=== PATIENT | male | born 1955 | race Caucasian/White ===

== ENCOUNTER 2017-04-25 21:38 | Emergency (ER) | payer MEDICAID ==
--- NOTE | 2017-04-25 22:40 | Emergency Department Record ---
History of Present Illness - General Chief complaint: Abscess Stated complaint: LARGE SORE OVER LEFT EYE Time Seen by Provider: 04/25/17 22:23 Source: Patient Mode of Arrival: Ambulatory Limitations: No limitations - History of Present Illness Initial comments: pt has a growth on his eyelid for a year which has gotten progressively bigger. it is tender. pt has not been to dr in a long time but has an appt with dr alegria this week complaint: Lesion Onset/Timin -: Days(s) Location: Face Severity: Mild Consistency: Constant Associated symptoms: Denies other symptoms Treatments Prior to Arrival: Attempted to drain pus at home - Related Data Previous Rx's Medication Instructions Recorded Sulfamethoxazole/Trimethoprim 1 each PO BID #14 tablet 04/25/17 [Bactrim Ds Tablet] Allergies Allergy/AdvReac Type Severity Reaction Status Date / Time No Known Drug Allergies Allergy Verified 03/24/16 15:57 Travel Screening - Travel/Exposure Within Last 30 Days Have you traveled within the last 30 days?: No Review of Systems Reviewed: No additional complaints except as noted below Constitutional: Reports: As per HPI. Denies: Chills, Fever, Malaise, Night sweats, Weakness, Weight change Eyes: Reports: As per HPI. Denies: Eye discharge, Eye pain, Photophobia, Vision change ENT: Reports: As per HPI. Denies: Congestion, Dental pain, Ear pain, Epistaxis , Hearing loss, Throat pain Respiratory: Reports: As per HPI. Denies: Cough, Dyspnea, Hemoptysis, Stridor, Wheezes Cardiovascular: Reports: As per HPI. Denies: Arrhythmia, Chest pain, Dyspnea on exertion, Edema, Murmurs, Orthopnea, Palpitations, Paroxysmal nocturnal dyspnea, Rheumatic Fever, Syncope Endocrine: Reports: As per HPI. Denies: Fatigue, Heat or cold intolerance, Polydipsia, Polyuria Gastrointestinal: Reports: As per HPI. Denies: Abdominal pain, Constipation, Diarrhea, Hematemesis, Hematochezia, Melena, Nausea, Vomiting Genitourinary: Reports: As per HPI. Denies: Dysuria, Frequency, Hematuria, Incontinence, Retention, Testicular pain, Testicular mass, Urgency Musculoskeletal: Reports: As per HPI. Denies: Arthralgia, Back pain, Gout, Joint swelling, Myalgia, Neck pain Skin: Reports: As per HPI. Denies: Bruising, Change in color, Change in hair/ nails, Lesions, Pruritus, Rash Neurological: Reports: As per HPI. Denies: Abnormal gait, Confusion, Headache, Numbness, Paresthesias, Seizure, Tingling, Tremors, Vertigo, Weakness Psychiatric: Reports: As per HPI. Denies: Anxiety, Auditory hallucinations, Depression, Homicidal thoughts, Suicidal thoughts, Visual hallucinations Hematological/Lymphatic: Reports: As per HPI. Denies: Anemia, Blood Clots, Easy bleeding, Easy bruising, Swollen glands Past Medical History - SOCIAL HISTORY Smoking Status: Current every day smoker Alcohol Use: Heavy Alcohol Use Comment: 6 drinks Drug Use: None - RESPIRATORY Hx Respiratory Disorders: Yes Hx COPD: Yes Comment:: emphysema - CARDIOVASCULAR Hx Cardio Disorders: Yes Hx Abnormal EKG: Yes Hx Heart Attack: Yes - NEURO Hx Neuro Disorders: No - GI Hx GI Disorders: No - Hx Genitourinary Disorders: No - ENDOCRINE Hx Endocrine Disorders: No - MUSCULOSKELETAL Hx Musculoskeletal Disorders: No - PSYCH Hx Psych Problems: No - HEMATOLOGY/ONCOLOGY Hx Hematology/Oncology Disorders: No Family Medical History Any Significant Family History?: Yes Hx Cancer: Father, Mother Hx Heart Disease: Mother Physical Exam - General General Appearance: Alert, Oriented x3, Cooperative, Mild distress - Head Head exam: Normal inspection Image of Face/Head: 1 - walnut sized lesion that is tender w black center - Eye Eye exam: Normal appearance, PERRL, EOMI, Periorbital swelling Pupils: Normal accommodation - ENT ENT exam: Normal exam, Mucous membranes moist, Normal external ear exam, Normal orophraynx, TM's normal bilaterally Ear exam: Normal external inspection. negative: External canal tenderness Nasal Exam: Normal inspection. negative: Discharge, Sinus tenderness Mouth exam: Normal external inspection, Tongue normal Teeth exam: Normal inspection. negative: Dental caries Throat exam: Normal inspection. negative: Tonsillar erythema, Tonsillar exudate - Neck Neck exam: Normal inspection, Full ROM. negative: Tenderness - Respiratory Respiratory exam: Normal lung sounds bilaterally. negative: Respiratory distress - Cardiovascular Cardiovascular Exam: Regular rate, Normal rhythm, Normal heart sounds - GI/Abdominal GI/Abdominal exam: Soft, Normal bowel sounds. negative: Tenderness - Rectal Rectal exam: Deferred - exam: Deferred - Extremities Extremities exam: Normal inspection, Full ROM, Normal capillary refill. negative: Tenderness - Back Back exam: Reports: Normal inspection, Full ROM. Denies: Muscle spasm, Rash noted, Tenderness - Neurological Neurological exam: Alert, CN II-XII intact, Normal gait, Oriented X3 - Psychiatric Psychiatric exam: Normal affect, Normal mood - Skin Skin exam: Dry, Intact, Normal color, Warm Distribution of rash: Face Description of rash: Swelling, Tenderness Course Vital Signs 04/25/17 21:53 Temperature 98.1 F Pulse Rate [ 86 Pulse Ox Probe] Respiratory 20 Rate Blood Pressure 147/101 [Left Arm] Pulse Ox 94 L - Reevaluation(s) Reevaluation #1: 04/25/17 22:40 d/w drew eugene and lucy Disposition Disposition: Discharge Clinical Impression: Facial lesion Disposition: Home, Self-Care Condition: (2) Stable Instructions: Soft Tissue Mass (ED) Additional Instructions: follow up with dr paulino on thursday and dr eugene on . return sooner if worse Prescriptions: Sulfamethoxazole/Trimethoprim [Bactrim Ds Tablet] 1 each PO BID #14 tablet Referrals: Kiet Paulino [DOCTOR OF OSTEOPATH] - [facility] [Provider Group] Forms: Patient Portal Access Quality - Quality Measures Quality Measures: N/A - Blood Pressure Screening Does Patient Have Any of the Following: No Blood Pressure Classification: Hypertensive Reading Systolic Measurement: 147 Diastolic Measurement: 101 Screening for High Blood Pressure: < First Hypertensive BP, F/U Documented > [ G8950] First Hypertensive Follow-up Interventions: Follow-up with rescreen GT 1 day and LT 4 weeks.
[2017-04-25] MEDS: HYDROCODONE/APAP 5/325MG TABLET PO ONE (22:52)
[2017-04-25] MEDS: TMP/SMZ 160MG/800MG TAB PO ONE ×2 (22:52→22:58)
== END 2017-04-25 23:02 | disposition home or self-care (01) ==
LOC: ER 21:38
DX: R22.0 Localized swelling, mass and lump, head (principal)
CPT/HCPCS: 99283

== ENCOUNTER 2018-06-28 18:08 | Emergency (ER) | payer MEDICAID ==
[2018-06-28] MEDS ORDERED: ASPIRIN 81 MG CHEWABLE TABLET PO ONE (18:10)
[2018-06-28] MEDS ORDERED: 0.9 % SODIUM CHLORIDE 1000ML 1,000 ML IV SCH (18:15)
--- NOTE | 2018-06-28 18:19 | Emergency Department Record ---
History of Present Illness - General Chief Complaint: Chest Pain Stated Complaint: CHEST PAIN Time Seen by Provider: 06/28/18 18:09 Source: Patient Mode of Arrival: EMS Limitations: No limitations - History of Present Illness Initial Comments: 63 yo male presents to ED for evaluation of left knee pain following a fall at home prior to arrival. Patient reports that he tripped and fell at home, was unable to put weight on the LLE. Patient also reports intermittent chest pain symptoms that he has been taking Nitro for, denies previous stress testing, heart cath, stent placement, or CAD. Patient does report seeing Dr. Bradford previously for "irregular beats". Patient also reports long standing smoking history. MD Complaint: Chest pain Onset/Timin -: Days(s) Pain Location: Substernal Severity: Moderate Quality: Tightness Consistency: Intermittent Improves With: Rest Worsens With: Exertion Treatments Prior to Arrival: None - Related Data Previous Rx's Medication Instructions Recorded Sulfamethoxazole/Trimethoprim 1 each PO BID #14 tablet 04/25/17 [Bactrim Ds Tablet] Allergies Allergy/AdvReac Type Severity Reaction Status Date / Time No Known Drug Allergies Allergy Verified 03/24/16 15:57 Review of Systems Constitutional: Denies: Chills, Fever, Malaise, Night sweats Eyes: Denies: Eye discharge, Eye pain ENT: Denies: Congestion, Ear pain, Epistaxis Respiratory: Denies: Cough, Dyspnea Cardiovascular: Reports: Chest pain. Denies: Dyspnea on exertion, Palpitations Endocrine: Denies: Fatigue, Heat or cold intolerance Gastrointestinal: Denies: Abdominal pain, Nausea, Vomiting Genitourinary: Denies: Incontinence, Retention Musculoskeletal: Reports: Arthralgia. Denies: Back pain, Gout, Joint swelling Skin: Denies: Bruising, Change in color Neurological: Denies: Abnormal gait, Confusion, Headache Psychiatric: Denies: Anxiety Hematological/Lymphatic: Denies: Anemia, Blood Clots Past Medical History - SOCIAL HISTORY Smoking Status: Current every day smoker Alcohol Use Comment: daily - RESPIRATORY Hx Respiratory Disorders: Yes Hx COPD: Yes Comment:: emphysema - CARDIOVASCULAR Hx Cardio Disorders: Yes Hx Abnormal EKG: Yes (Sees Dr Bradford-services rep) Hx Heart Attack: Yes (2 mild LA in ) Hx Hypertension: Yes (hx of-been off of HTN meds x1year(atenolol)) Comment:: rides bike [employer](3-4miles/day) - NEURO Hx Neuro Disorders: No - GI Hx GI Disorders: No - Hx Genitourinary Disorders: No - ENDOCRINE Hx Endocrine Disorders: No - MUSCULOSKELETAL Hx Musculoskeletal Disorders: No - PSYCH Hx Psych Problems: No - HEMATOLOGY/ONCOLOGY Hx Hematology/Oncology Disorders: Yes Comment:: bleeds easily Family Medical History Hx Cancer: Father, Mother Hx Heart Disease: Mother Physical Exam - General General Appearance: Alert, Oriented x3, Cooperative, Moderate distress, Other ( Ashen appearance on examination) Limitations: No limitations - Head Head exam: Atraumatic, Normocephalic, Normal inspection Head exam detail: negative: Abrasion, Contusion, Hansen's sign, General tenderness, Hematoma, Laceration - Eye Eye exam: Normal appearance. negative: Conjunctival injection, Periorbital swelling, Periorbital tenderness, Scleral icterus - ENT Ear exam: negative: Auricular hematoma, Auricular trauma Mouth exam: negative: Drooling, Laceration, Muffled voice, Tongue elevation - Neck Neck exam: Normal inspection. negative: Meningismus, Tenderness - Respiratory Respiratory exam: Normal lung sounds bilaterally. negative: Respiratory distress, Rhonchi, Stridor, Wheezes - Cardiovascular Cardiovascular Exam: Regular rate, Normal rhythm, Normal heart sounds - GI/Abdominal GI/Abdominal exam: Soft. negative: Rebound, Rigid, Tenderness - Rectal Rectal exam: Deferred - exam: Deferred - Extremities Extremities exam: Tenderness, Other (TTP to the left knee on examination, no effusion present on examination. Patient is able to flex at the knee, lift the LE off the cart without significant pain or difficulty. No pain over the hip/ femur, no pain to the tib-fib region distally on examination.). negative: Calf tenderness, Pedal edema - Back Back exam: Denies: CVA tenderness (R), CVA tenderness (L) - Neurological Neurological exam: Alert, Oriented X3 - Psychiatric Psychiatric exam: Normal affect, Normal mood - Skin Skin exam: negative: Abrasion Type of lesion: negative: abrasion Course - Reevaluation(s) Reevaluation #1: 06/28/18 18:23 EKG: NSR 71 Normal axis, IVCD Peaked T waves V3-V5 Overall unchanged from 09/13/14 Reevaluation #2: 12/10/18 18:49 Laboratory studies were reviewed: Alcohol 0.366 AST 178 ALT 54 Alcohol 0.366 Patient is CP-free at this time, will initiate transfer to [facility] for further evaluation. Reevaluation #3: 06/28/18 19:06 Left knee: No acute fracture or dislocation Probable vascular calcifications lower extremity Reevaluation #4: 06/28/18 19:31 Case was discussed with Dr. Toure (Hospitalist), will accept transfer for further evaluation. Medical Decision Making - Lab Data Result diagrams: 06/28/18 18:20 06/28/18 18:20 Disposition Disposition: Transfer Clinical Impression: Elevated troponin Alcohol intoxication Qualifiers: Complication of substance-induced condition: uncomplicated Qualified Code(s): F10.920 - Alcohol use, unspecified with intoxication, uncomplicated Fall Qualifiers: Encounter type: initial encounter Qualified Code(s): W19.XXXA - Unspecified fall, initial encounter Disposition: Acute Care Hospital Transfer Transfer To: [facility] Reason For Transfer: Cardiology consultation Accepting Physician: Tejal Time Discussed w/Accepting Physician: 19:32 Condition: (2) Stable Forms: Patient Portal Access Time of Disposition: 19:32 Quality - Quality Measures Quality Measures: N/A - Blood Pressure Screening Does Patient Have Any of the Following: No Blood Pressure Classification: Hypertensive Reading Systolic Measurement: 162 Diastolic Measurement: 104 Screening for High Blood Pressure: < First Hypertensive BP, F/U Documented > [ G8950] First Hypertensive Follow-up Interventions: Referral to alternative/primary care provider.
[2018-06-28 18:29] LABS: HEMATOCRIT 42.8 % (42.0-52.0); HEMOGLOBIN 14.7 gm/dl (14.0-18.0); MEAN CELL VOLUME 102.1 fl (81-97); MEAN CORPUSCULAR HGB CONC 34.3 g/dl (32-36); MEAN PLATELET VOLUME 9.6 fl (7.4-10.4); PLATELET COUNT 220 K/uL (130-400); RED BLOOD COUNT 4.19 M/uL (4.40-5.70); RED CELL DISTRIBUTION WIDTH 15.4 % (11.5-14.5); WHITE BLOOD COUNT W/O DIFF 5.9 K/uL (4.2-12.2)
[2018-06-28 18:38] LABS: BLOOD UREA NITROGEN 3 mg/dL (8-23); CREATININE 0.4 mg/dL (0.7-1.2); EST GLOMERULAR FILTRATION RATE > 60 mL/min; TOTAL PROTEIN 7.6 g/dL (6.6-8.7)
[2018-06-28 18:39] LABS: ALCOHOL 0.366 g/dL (0-0.010)
[2018-06-28 18:40] LABS: GLUCOSE,RANDOM 101 mg/dL (74-109)
[2018-06-28 18:43] LABS: ALB/GLOB RATIO 0.9 (1.1-1.8); ALBUMIN 3.7 g/dL (4.0-5.0); ALKALINE PHOSPHATASE 127 U/L (40-129); ALT/SGPT 54 U/L (<41); AST/SGOT 178 U/L (10.0-50.0)
--- NOTE | 2018-07-01 07:54 | RADIOLOGY REPORT ---
EXAM: LEFT KNEE, FOUR VIEWS HISTORY: PATIENT FELL AT HOME TODAY WITH ANTERIOR LEFT KNEE PAIN. TECHNIQUE: Four views of the left knee were obtained. Comparison: None. Encounter: Initial. FINDINGS: There is some calcification in the medial aspect of the lower thigh which may be some vascular calcification. No definite acute fracture or dislocation of the knee identified. No definite joint effusion seen. IMPRESSION: THE LEFT KNEE APPEARS ESSENTIALLY NEGATIVE WITH NO DEFINITE FRACTURE IDENTIFIED. THERE IS PROBABLY SOME VASCULAR CALCIFICATION PRESENT IN THE THIGH AND POSTERIOR TO THE KNEE. JOB NUMBER: [id number] [facility]
== END 2018-06-28 20:16 | disposition short-term general hospital (02) ==
LOC: ER 18:08
DX: R79.89 Other specified abnormal findings of blood chemistry (principal); R07.2 Precordial pain; G89.11 Acute pain due to trauma; M25.562 Pain in left knee; F10.920 Alcohol use, unspecified with intoxication, uncomplicated; Y90.8 Blood alcohol level of 240 mg/100 ml or more; W01.0XXA Fall on same level from slipping, tripping and stumbling without subsequent striking against object, initial encounter; Y92.009 Unspecified place in unspecified non-institutional (private) residence as the place of occurrence of the external cause; I25.2 Old myocardial infarction; F17.210 Nicotine dependence, cigarettes, uncomplicated
CPT/HCPCS: 99285 ×2; 80053; 84484; 85027; 73564; 93005; 93010; G0480; 80320; J7030